=== PATIENT | female | born 1970 | race Caucasian/White ===

== ENCOUNTER → 2021-04-12 12:27 | Outpatient (BNVA) | payer BC, SELFPAY | PROVIDERS: Visit Provider Nurse Practitioner Family | DX: J06.9 Acute upper respiratory infection, unspecified (principal); R05 Cough; R06.02 Shortness of breath | CPT/HCPCS: 71046; 85025; 87071; 87400; 87880 ==

== ENCOUNTER → 2021-05-29 10:13 | Outpatient (BNVA) | payer BC, SELFPAY | PROVIDERS: Visit Provider Nurse Practitioner Family | DX: R30.0 Dysuria (principal); E03.9 Hypothyroidism, unspecified; N95.1 Menopausal and female climacteric states; E78.00 Pure hypercholesterolemia, unspecified; Z12.39 Encounter for other screening for malignant neoplasm of breast; Z68.29 Body mass index [BMI] 29.0-29.9, adult; Z71.89 Other specified counseling | CPT/HCPCS: 80053; 80061; 82306; 84443 ==

== ENCOUNTER → 2021-08-03 13:27 | Outpatient (BNVA) | payer BC, SELFPAY | PROVIDERS: Visit Provider Nurse Practitioner Family | DX: Z20.822 Contact with and (suspected) exposure to COVID-19 (principal) | CPT/HCPCS: 87635 ==

== ENCOUNTER → 2021-08-13 09:52 | Outpatient (BNVA) | payer BC, SELFPAY | PROVIDERS: Visit Provider Nurse Practitioner Family | DX: Z11.52 Encounter for screening for COVID-19 (principal); Z20.822 Contact with and (suspected) exposure to COVID-19; Z13.9 Encounter for screening, unspecified | CPT/HCPCS: 87635 ==

== ENCOUNTER → 2021-10-29 11:56 | Outpatient (BNVA) | payer BC, SELFPAY | PROVIDERS: Visit Provider Nurse Practitioner Family | DX: J40 Bronchitis, not specified as acute or chronic (principal); J18.9 Pneumonia, unspecified organism; R06.02 Shortness of breath; J06.9 Acute upper respiratory infection, unspecified; J32.9 Chronic sinusitis, unspecified | CPT/HCPCS: 80053 ==

== ENCOUNTER → 2021-11-27 10:24 | Outpatient (BNVA) | payer BC, SELFPAY | PROVIDERS: PCP Nurse Practitioner Family; Visit Provider Nurse Practitioner Family | DX: R30.0 Dysuria (principal); E55.9 Vitamin D deficiency, unspecified; E78.00 Pure hypercholesterolemia, unspecified; E03.9 Hypothyroidism, unspecified; M62.838 Other muscle spasm; M25.512 Pain in left shoulder; M54.2 Cervicalgia; N32.81 Overactive bladder; N39.0 Urinary tract infection, site not specified; N32.89 Other specified disorders of bladder; N95.1 Menopausal and female climacteric states; G47.00 Insomnia, unspecified | CPT/HCPCS: 80053; 82306; 84443 ==

== ENCOUNTER → 2022-04-03 12:06 | Outpatient (BNVA) | payer BC, SELFPAY | PROVIDERS: PCP Nurse Practitioner Family; Visit Provider Nurse Practitioner Family | DX: Z12.4 Encounter for screening for malignant neoplasm of cervix (principal); N95.1 Menopausal and female climacteric states | CPT/HCPCS: 88175 ==

== ENCOUNTER → 2022-06-14 09:13 | Outpatient (BNVA) | payer BC, SELFPAY | PROVIDERS: PCP Nurse Practitioner Family; Visit Provider Nurse Practitioner Family | DX: E55.9 Vitamin D deficiency, unspecified (principal); E78.00 Pure hypercholesterolemia, unspecified; E03.9 Hypothyroidism, unspecified; G47.00 Insomnia, unspecified; M62.838 Other muscle spasm; K21.9 Gastro-esophageal reflux disease without esophagitis; M25.512 Pain in left shoulder; M54.2 Cervicalgia; J32.9 Chronic sinusitis, unspecified; N32.81 Overactive bladder; N95.1 Menopausal and female climacteric states; J30.2 Other seasonal allergic rhinitis | CPT/HCPCS: 80053; 80061; 84443 ==

== ENCOUNTER → 2022-08-13 11:05 | Outpatient (BNVA) | payer BC, SELFPAY | PROVIDERS: PCP Nurse Practitioner Family; Visit Provider Nurse Practitioner Family | DX: J40 Bronchitis, not specified as acute or chronic (principal); J32.0 Chronic maxillary sinusitis | CPT/HCPCS: 80053 ==

== ENCOUNTER → 2023-01-21 08:48 | Outpatient (BNVA) | payer OTHER, SELFPAY | PROVIDERS: PCP Nurse Practitioner Family; Visit Provider Nurse Practitioner Family | DX: J06.9 Acute upper respiratory infection, unspecified (principal); J32.0 Chronic maxillary sinusitis | CPT/HCPCS: 87486; 87581; 87633 ==

== ENCOUNTER → 2023-03-25 12:01 | Outpatient (BNVA) | payer OTHER, SELFPAY | PROVIDERS: PCP Nurse Practitioner Family; Visit Provider Nurse Practitioner Family | DX: E03.9 Hypothyroidism, unspecified (principal); E78.00 Pure hypercholesterolemia, unspecified; M25.512 Pain in left shoulder; M54.2 Cervicalgia; E55.9 Vitamin D deficiency, unspecified; H57.12 Ocular pain, left eye; M19.90 Unspecified osteoarthritis, unspecified site | CPT/HCPCS: 80053; 80061; 82306; 84443 ==

== ENCOUNTER → 2024-01-26 08:43 | Outpatient (BNVA) | payer OTHER, SELFPAY | PROVIDERS: PCP Nurse Practitioner Family; Visit Provider Nurse Practitioner Family | DX: E78.00 Pure hypercholesterolemia, unspecified (principal); E03.9 Hypothyroidism, unspecified; E55.9 Vitamin D deficiency, unspecified; M25.512 Pain in left shoulder; M54.2 Cervicalgia; M19.90 Unspecified osteoarthritis, unspecified site | CPT/HCPCS: 80053; 80061; 84443; 85025 ==

== ENCOUNTER → 2024-04-29 10:35 | Outpatient (BNVA) | payer OTHER, SELFPAY | PROVIDERS: PCP Nurse Practitioner Family; Visit Provider Nurse Practitioner Family | DX: E03.9 Hypothyroidism, unspecified (principal); E78.00 Pure hypercholesterolemia, unspecified | CPT/HCPCS: 84443 ==

== ENCOUNTER 2024-06-15 11:58 | Outpatient (CLI) | payer OTHER, SELFPAY ==
--- NOTE | 2024-06-15 12:00 | MM_ITS ---
WS: [id number] BILATERAL 3D TOMOSYNTHESIS DIGITAL SCREENING MAMMOGRAPHY WITH CAD CLINICAL INFORMATION: Z12.39 - Encounter for other screening for malignant neop... HISTORY: Screening mammogram. No current complaints. COMPARISON: 2021 TECHNIQUE: Bilateral CC and MLO views. FINDINGS: Scattered fibroglandular densities bilaterally. No suspicious focal mass, asymmetry, calcifications, or architectural distortion. No evidence of malignancy. Incidental punctate calcification LEFT breast . MM/MM scr tomosynthesis [id number] IMPRESSION: DENSITY: There are scattered areas of fibroglandular density. BI-RADS: 2 - Benign. FOLLOW UP: 1 Year Follow-up Recommend return to annual screening mammography.
== END 2024-06-15 11:59 | disposition home or self-care (01) ==
LOC: MOBLMAM 11:59
PROVIDERS: PCP Nurse Practitioner Family; Visit Provider Nurse Practitioner Family
DX: Z12.31 Encounter for screening mammogram for malignant neoplasm of breast (principal); R92.323 Mammographic fibroglandular density, bilateral breasts; N92.1 Excessive and frequent menstruation with irregular cycle
CPT/HCPCS: 77063; 77067

== ENCOUNTER → 2024-08-12 10:25 | Outpatient (BNVA) | payer OTHER, SELFPAY | PROVIDERS: PCP Nurse Practitioner Family; Visit Provider Emergency Medicine | DX: S69.92XA Unspecified injury of left wrist, hand and finger(s), initial encounter (principal); X58.XXXA Exposure to other specified factors, initial encounter | CPT/HCPCS: 73110 ==

== ENCOUNTER → 2024-08-16 13:01 | Outpatient (BNVA) | payer OTHER, SELFPAY | PROVIDERS: PCP Nurse Practitioner Family; Visit Provider Nurse Practitioner Family | DX: E03.9 Hypothyroidism, unspecified (principal) | CPT/HCPCS: 84443 ==

== ENCOUNTER → 2024-11-01 12:31 | Outpatient (BNVA) | payer OTHER, SELFPAY | PROVIDERS: PCP Nurse Practitioner Family; Visit Provider Nurse Practitioner Family | DX: E03.9 Hypothyroidism, unspecified (principal) | CPT/HCPCS: 80053; 80061; 84443 ==

== ENCOUNTER 2025-07-25 07:44 | Emergency (ER) | payer OTHER, SELFPAY ==
--- OUTSIDE RECORDS SUMMARY | 2025-07-25 07:48 | XMS_ITS | Patient Health Record ---
Author Organization [facility] Address [address] [place] [address] Care Team Providers Care Leg Breaker Name Role Phone Ayanna Ireland Primary Care Provider Susan Vyas Unavailable [phone] Cris Chan APRN Unavailable Unavailabl e Allergies Allergen (clinical drug ingredient) Drug/Non Drug Allergy documented on EMR Reaction Allergy Type Onset Date Status amoxicillin Amoxicillin Unknown Drug Allergy Act milly meperidine Demerol Unknown Drug Allergy Active Rhus Tox Unknown Drug Allergy Active Reason For Referral No Information Medications Medication SIG (Take, Route, Frequency, Duration) Notes Start Date End Date Status oxyBUTYnin Chloride ER 5 MG Tablet Extended Release 24 Hour 1 tablet Orally Once a day Active Fluticasone Propionate 50 MCG/ACT Suspension 1 spray in each nostril Nasally Once a day Active Eszopiclone 2 MG Tablet 1 tablet immedia tely before bedtime Orally prn Active Cyclobenzaprine HCl 10 MG Tablet 1 tablet at bedtime as needed Orally prn Active Estradiol 0.1 MG/GM Cream as directed Vaginal Active Atorvastatin Calcium 20 MG Tablet 1 tablet Orally Once a day Active Levothyroxine Sodium 88 MCG Tablet 1 tablet in the morning on an empty stomach Orally Once a day Active Immunizations Vaccine Route Administration Date Status Comme nts Influenza (whole), CPT 90193 Inactive Unknown 03/27/2018 Administered Social History Tobacco Use: Social History Observation Description Date Details (start date - stop date) Never Smoker NA - NA Social History Drugs/Alcohol: Social Info Question Answer Notes Alcohol Screen (Audit-C) Did you have a drink containing alcohol in the past year? Yes How often did you have a drink containing alcohol in the past year? 2 to 3 times a week (3 points) Points 3 Interpretation Positive Tobacco Use: Social Info Question Answer Notes xTobacco Use/Smoking Are you a nonsmoker Additional Details Category Social Info Options Details zzMigrated Social History Migrated Social History Smoking Status:Never smoked tobacco (finding) Problems Problem Type SNOMED Code ICD Code Onset Dates Problem Status W/U Status Risk Notes Problem Diverticular disease of colon (580708203) Diverticulosis of large intestine without perforation or abscess without bleeding (K57.30) Active confirmed Problem Diverticulitis (58412493) Diverticulitis (K57.92) Active confirmed Plan Of Treatment No Information Insurance Providers Payer Name Payer Address Payer Phone Subscriber Number Group Number Insured Name Patient Relationship to Insured Coverage Start Date Coverage End Date [facility] Commercial [address] [place] [phone] [id number] Leah Moss Self - patient is the insured Medical (General) History Medical History History ICD Code hyperlipidemia hypothyroidism hemorrhoids menieres disease Muscle spasms with neck pain Surgical History Surgery Date(Month/Year) tubal ligation dilatation and curettage x2 appendectomy Hospitalization History Reason Date(Month/Year) see surgical hx
--- OUTSIDE RECORDS SUMMARY | 2025-07-25 07:49 | XMS_ITS | Data Portability ---
Author Organization [facility], autoContract Address [address] [facility] [address] [place] [address] Assessment No assessment recorded. Plan of Treatment Reminders Order Date Submit Date Provider Last Modified By Organization Details Last Modified Time Details Appointments None recorded. Lab urinalysis , dipstick 2021 022 [email or web address] In-House Results, For Internal Use Only, Do Not Delete/merge, [id number] 2 16:28:46 rapid SARS CoV 2 Ag, QL IA, respirator y specimen 2020 021 [email or web address] 1 In-Office Order, Internal Use Only DO Not Attach Compendium DO Not Attach Compendium, Do Not Delete/merge, [id number] 1 16:44:28 SARS CoV 2 RNA (COVID-19) , QL, electronic gaming device supervisor-PCR, respirator y specimen 2020 021 JORJE In-House Results, For Internal Use Only, Do Not Delete/merge, [id number] 15:42:28 Referral None recorded. Procedures None recorded. Surgeries None recorded. Imaging XR, abdomen, 1 view 2022 023 [email or web address] 132 [facility]) Imaging, [address] [place] [address] Tony Sheets, [place], [address], 3 13:22:58 Medication Orders Cipro 500 mg tablet 2021 022 [email or web address] [facility] [address], [place], [address], 21:34:57 metronidaz ole 500 mg tablet 2021 [facility] [address], [address] [facility] [address], [place], [address], 16:28:14 azithromyc in 250 mg tablet [address] [facility] [address] [place], [address], 16:44:36 methylpred nisolone acetate 40 mg/mL suspension for injection 2020 [email or web address] Not available 08:53:55 dexamethas one sodium phosphate 4 mg/mL injection solution 2020 [email or web address] Not available 08:53:55 Tessalon Perles 100 mg capsule [address] [facility] [address] [place], [address], 16:44:39 ProAir HFA 90 mcg/actuat ion aerosol inhaler [address] [facility] [address] [place], [address], 16:44:40 Polytrim 10,000 unit-1 mg/mL eye drops [address] [facility] [address], [address] [facility] [address], [place], [address], 10:34:54 Patient TargetsNo targets recorded. Patient Instructions Encounter Date Encounter Id Patient Instructions Last Modified By Organization Details Last Modified Time 03/16/2021 [id number] candidiasis: car e instructions [email or web address] Not available 03/16/2021 09:59:12 Pt was told to R TC in 1 week if not better or sooner if worsens. Pt discharged to home via private vehicle. [email or web address] Not available 03/16/2021 09:58:27 03/27/2021 [id number] pinkeye: care instructions [email or web address] Not available 03/27/2021 10:34:38 Avoid rubbing ey es Wash hands frequently Start antibiotic drops as prescribed Contagious for 24 hours after starting abx drops Pt was told to RTC in 1 week if not better or sooner if worsens [email or web address] Not available 04/03/2021 00:24:24 04/09/2021 [id number] headache: care instructions Not available 04/09/2021 16:44:27 9 things to do i f you've been exposed to covid-19 [email or web address] Not available 04/09/2021 16:44:27 sore throat: car e instructions [email or web address] Not available 04/09/2021 16:44:27 *Patient examine d in private vehicle in clinic parking lot will full PPE in place to prevent risk of exposure or transmission. -Will test for COVID 19, further plan of care pending results -VS stable at this time, no acute distress, exam unremarkable. Is stable for outpatient treatment. -Recommend to self-quarantine at home for 10 days from the time of first symptom. Restrict all activities outside of home, aside from medical care. Stay in a specific room and away from other people in your home. Use a seperate bathroom. Do not handle animals while sick. - Discussed: Get some extra rest, increase fluid intake. Take an strg-ekg-hccgtwr pain medicine, such as acetaminophen (Tylenol) for fever/pain. -Call ahead before coming to the clinic -Wear a facemask if you have to be around other people. -Cover your mouth and nose with a tissue when you cough or sneeze and immediately wash your hands with soap and water for at least 20 seconds or clean your hands with an alcohol based hand-personal lines advisor. -Avoid sharing personal household items (towels, cups, utensils, bedding) -Wash hands often and avoid touching your mouth, eyes, nose. -Clean and disinfect all high touch surfaces including counters, tabletops, doorknobs, toilets, phones, keyboards and any surface that may have blood, stool, or body fluids on them. Monitor symptoms closely. Disease may worsen after the second week of infection. Seek prompt medical attention if your illness is worsening. Before seeking care, contact healthcare provider and tell them that you are under investigation for COVID-19. If you need immediate medical attention call 911, if possible, put on a facemask before EMS arrives. Advised to call office if any questions or concerns arise. Patient discharged to home via private vehicle with his spouse. Verbal and written education given. Follow-up instructions provided. [email or web address] Not available 04/09/2021 16:44:53 02/08/2022 [id number] painful urinatio n (dysuria): care instructions [email or web address] Not available 02/10/2022 21:45:37 abdominal pain: care instructions [email or web address] Not available 02/08/2022 16:20:00 AMC_COVID_VACCIN E_ HESITANCY sbayird Not available 02/08/2022 16:20:00 Lisa Learns About Germ-Busting sbayird Not available 02/08/2022 16:20:00 coronavirus (covid-19): care instructions sbayird Not available 02/08/2022 16:20:00 learning about coronavirus (covid-19) sbayird Not available 02/08/2022 16:20:00 RX and instructions as above. Patient discharged home in private vehicle in stable condition. Has f/u with PCP on Friday. [email or web address] Not available 02/10/2022 21:43:49 10/16/2022 [id number] AMC_COVID_VACCIN E_ HESITANCY 8 Not available 10/17/2022 13:02:48 Lisa Learns About Germ-Busting [email or web address] Not available 10/17/2022 13:02:48 coronavirus (covid-19): care instructions [email or web address] 8 Not available 10/17/2022 13:02:48 learning about coronavirus (covid-19) [email or web address] 8 Not available 10/17/2022 13:02:48 RTC in 1 month o r sooner if needed. pt discharged to home via private vehicle [email or web address] 8 Not available 10/16/2022 18:22:59 Reason for Referral None Reported. Results Created Date Observation Date Name Description Value Unit Range Abnormal Flag Note LastModifiedBy Organization Detail LastModifiedTime 04/09/2004/09/2021 rapid SARS CoV 2 Ag, QL IA, respi rator y speci men Rapid COVID-19 antigen negati ve Not Available In-Office Order Internal Use Only DO Not Attach Compendium DO Not Attach Compendium, Do Not Delete/merge, [id number] 04/09/2021 16:42:37 02/27/20 21 02/26/2021 influ roque virus A + B and SARS CoV 2 (COVI D-19) and RSV RNA panel , NAFISA+p robe, respi rator y speci men Flu A negati ve Not Available In-Office Order Internal Use Only DO Not Attach Compendium DO Not Attach Compendium, Do Not Delete/merge, [id number] 02/26/2021 11:02:08 02/27/20 21 02/26/2021 influ roque virus A + B and SARS CoV 2 (COVI D-19) and RSV RNA panel , NAFISA+p robe, respi rator y speci men Flu B negati ve Not Available In-Office Order Internal Use Only DO Not Attach Compendium DO Not Attach Compendium, Do Not Delete/merge, [id number] 02/26/2021 11:02:08 02/27/20 21 02/26/2021 influ roque virus A + B and SARS CoV 2 (COVI D-19) and RSV RNA panel , NAFISA+p robe, respi rator y speci men RSV negati ve Not Available In-Office Order Internal Use Only DO Not Attach Compendium DO Not Attach Compendium, Do Not Delete/merge, [id number] 02/26/2021 11:02:08 02/27/20 21 02/26/2021 influ roque virus A + B and SARS CoV 2 (COVI D-19) and RSV RNA panel , NAFISA+p robe, respi rator y speci men COVID negati ve Not Available In-Office Order Internal Use Only DO Not Attach Compendium DO Not Attach Compendium, Do Not Delete/merge, [id number] 02/26/2021 11:02:08 02/27/20 21 02/26/2021 rapid strep group A, throa t Strep negati ve Not Available In-House Results For Internal Use Only, Do Not Delete/merge, 02/26/2021 11:02:02 02/17/20 21 02/16/2021 urina lysis , dipst ick Leukocytes Negati ve Not Available In-House Results For Internal Use Only, Do Not Delete/merge, 02/15/2021 17:13:05 02/17/20 21 02/16/2021 urina lysis , dipst ick Nitrite negati ve Not Available In-House Results For Internal Use Only, Do Not Delete/merge, 02/15/2021 17:13:05 02/17/20 21 02/16/2021 urina lysis , dipst ick Urobilinogen .2 Not Available In-Ho use Results For Internal Use Only, Do Not Delete/merge, 02/15/2021 17:13:05 02/17/20 21 02/16/2021 urina lysis , dipst ick Protein Negati ve Not Available In-House Results For Internal Use Only, Do Not Delete/merge, 02/15/2021 17:13:05 02/17/20 21 02/16/2021 urina lysis , dipst ick pH 7.0 Not Available In-House Results For Internal Use Only, Do Not Delete/merge, 02/15/2021 17:13:05 02/17/20 21 02/16/2021 urina lysis , dipst ick Blood Small Not Available In-House Results For Internal Use Only, Do Not Delete/merge, 02/15/2021 17:13:05 02/17/20 21 02/16/2021 urina lysis , dipst ick Specific [place] 1.025 Not Available In-Cristel se Results For Internal Use Only, Do Not Delete/merge, 02/15/2021 17:13:05 02/17/20 21 02/16/2021 urina lysis , dipst ick Ketone Negati ve Not Available In-House Results For Internal Use Only, Do Not Delete/merge, 02/15/2021 17:13:05 02/17/20 21 02/16/2021 urina lysis , dipst ick Bilirubin Negati ve Not Available In-House Results For Internal Use Only, Do Not Delete/merge, [id number] 02/15/2021 17:13:05 02/17/20 21 02/16/2021 urina lysis , dipst ick Glucose Negati ve Not Available In-House Results For Internal Use Only, Do Not Delete/merge, [id number] 02/15/2021 17:13:05 02/27/20 21 02/27/2021 COMP METAB OLIC PANEL sodium 141 mEq/L 135-14 6 Not Available [facility] [address] [place], [address], 02/27/2021 05:04:47 02/27/20 21 02/27/2021 COMP METAB OLIC PANEL potassium 4.3 mEq/L 3.5-5. 4 Not Available [facility] [address] [place], [address], 02/27/2021 05:04:47 02/27/20 21 02/27/2021 COMP METAB OLIC PANEL chloride 105 mEq/L 95-107 Not Available [facility] [address] [place], [address], 02/27/2021 05:04:47 02/27/20 21 02/27/2021 COMP METAB OLIC PANEL carbon dioxide 28 mEq/L 19-31 Not Available [facility] [address] [place], [address], 02/27/2021 05:04:47 02/27/20 21 02/27/2021 COMP METAB OLIC PANEL anion gap 8 mEq/L 7-23 Not Available [facility] [address] [place], [address], 02/27/2021 05:04:47 02/27/20 21 02/27/2021 COMP METAB OLIC PANEL glucose non-fasting 99 mg/dL 70-139 Not Available [facility] [address] [place], [address], 02/27/2021 05:04:47 02/27/20 21 02/27/2021 COMP METAB OLIC PANEL urea nitrogen (BUN) 11 mg/dL 6-20 Not Available [facility] [address] [place], [address], 02/27/2021 05:04:47 02/27/20 21 02/27/2021 COMP METAB OLIC PANEL creatinine 0.69 mg/dL 0.60-1 .30 Not Available [facility] [address] [place], [place], [address], 02/27/2021 05:04:47 02/27/20 21 02/27/2021 COMP METAB OLIC PANEL eGFR 117 mL/mi n/1.7 3m'2 >59 Not Available [facility] [address] [place], [address], 02/27/2021 05:04:47 02/27/20 21 02/27/2021 COMP METAB OLIC PANEL eGFR non- amer 101 mL/mi n/1.7 3m'2 >59 Not Available [facility] [address] [place], [address], 02/27/2021 05:04:47 02/27/20 21 02/27/2021 COMP METAB OLIC PANEL BUN/creatini ne ratio 16 ratio Not Available [facility] [address] [place], [address], 02/27/2021 05:04:47 02/27/20 21 02/27/2021 COMP METAB OLIC PANEL calcium total 9.7 mg/dL 8.5-10 .5 Not Available [facility] [address] [place], [address], 02/27/2021 05:04:47 02/27/20 21 02/27/2021 COMP METAB OLIC PANEL protein total 6.7 g/dL 6.1-8. 3 Not Available [facility] [address] [place], [place], [address], 02/27/2021 05:04:47 02/27/20 21 02/27/2021 COMP METAB OLIC PANEL albumin 4.5 g/dL 3.5-5. 2 Not Available [facility] [address] [place], [place], [address], 02/27/2021 05:04:47 02/27/20 21 02/27/2021 COMP METAB OLIC PANEL globulin 2.2 g/dL 1.7-4. 3 Not Available [facility] [address] [place], [place], [address], 02/27/2021 05:04:47 02/27/20 21 02/27/2021 COMP METAB OLIC PANEL A/G ratio 2.0 ratio 0.9-2. 8 Not Available [facility] [address] [place], [place], [address], 02/27/2021 05:04:47 02/27/20 21 02/27/2021 COMP METAB OLIC PANEL bilirubin total 0.2 mg/dL 0.0-1. 2 Not Available [facility] [address] [place], [place], [address], 02/27/2021 05:04:47 02/27/20 21 02/27/2021 COMP METAB OLIC PANEL alkaline phosphatase 73 U/L 40-132 Not Available [facility] [address] [place], [place], [address], 02/27/2021 05:04:47 02/27/20 21 02/27/2021 COMP METAB OLIC PANEL AST (SGOT) 36 U/L 9-40 Not Available [facility] [address] [place], [address], 02/27/2021 05:04:47 02/27/20 21 02/27/2021 COMP METAB OLIC PANEL ALT (SGPT) 35 U/L 5-40 Not Available [facility] [address] [place], [place], [address], 02/27/2021 05:04:47 02/27/20 21 02/27/2021 CBC WITH DIFFE RENTI AL WBC 10.4 K/uL 4.0-11 .0 Not Available [facility] [address] [place], [place], [address], 02/27/2021 05:04:47 02/27/20 21 02/27/2021 CBC WITH DIFFE RENTI AL RBC 4.17 M/uL 4.00-5 .50 Not Available [facility] [address] [place], [place], [address], 02/27/2021 05:04:47 02/27/20 21 02/27/2021 CBC WITH DIFFE RENTI AL hemoglobin 12.3 g/dL 12.0-1 6.0 Not Available [facility] [address] [place], [place], [address], 02/27/2021 05:04:47 02/27/20 21 02/27/2021 CBC WITH DIFFE RENTI AL hematocrit 37.0 % 36.0-4 8.0 Not Available [facility] [address] [place], [place], [address], 02/27/2021 05:04:47 02/27/20 21 02/27/2021 CBC WITH DIFFE RENTI AL MCV 88.7 fL 78.0-1 02.0 Not Available [facility] [address] [place], [address], 02/27/2021 05:04:47 02/27/20 21 02/27/2021 CBC WITH DIFFE RENTI AL MCH 29.5 pg 25.0-3 5.0 Not Available [facility] [address] [place], [address], 02/27/2021 05:04:47 02/27/20 21 02/27/2021 CBC WITH DIFFE RENTI AL MCHC 33.2 g/dL 30.0-3 8.0 Not Available [facility] [address] [place], [place], [address], 02/27/2021 05:04:47 02/27/20 21 02/27/2021 CBC WITH DIFFE RENTI AL RDW 12.5 % 11.5-1 6.0 Not Available [facility] [address] [place], [place], [address], 02/27/2021 05:04:47 02/27/20 21 02/27/2021 CBC WITH DIFFE RENTI AL platelet count 329 K/uL 150-45 0 Not Available [facility] [address] [place], [place], [address], 02/27/2021 05:04:47 02/27/20 21 02/27/2021 CBC WITH DIFFE RENTI AL abs neutrophils 8.4 K/uL 1.8-7. 0 high Not Available [facility] [address] [place], [address], 02/27/2021 05:04:47 02/27/20 21 02/27/2021 CBC WITH DIFFE RENTI AL abs lymphocytes 1.1 K/uL 1.0-4. 0 Not Available [facility] [address] [place], [address], 02/27/2021 05:04:47 02/27/20 21 02/27/2021 CBC WITH DIFFE RENTI AL abs monocytes 0.8 K/uL 0.1-1. 1 Not Available [facility] [address] [place], [place], [address], 02/27/2021 05:04:47 02/27/20 21 02/27/2021 CBC WITH DIFFE RENTI AL abs eosinophils 0.0 K/uL 0.0-0. 5 Not Available [facility] [address] [place], [address], 02/27/2021 05:04:47 02/27/20 21 02/27/2021 CBC WITH DIFFE RENTI AL abs basophils 0.0 K/uL 0.0-0. 3 Not Available [facility] [address] [place], [place], [address], 02/27/2021 05:04:47 02/27/20 21 02/27/2021 CBC WITH DIFFE RENTI AL abs immature grans 0.0 K/uL 0.0-0. 1 Not Available [facility] [address] [place], [address], 02/27/2021 05:04:47 02/27/20 21 02/27/2021 CBC WITH DIFFE RENTI AL neutrophils 81.2 % Not Available [facility] [address] [place], [address], 02/27/2021 05:04:47 02/27/20 21 02/27/2021 CBC WITH DIFFE RENTI AL lymphocytes 10.6 % Not Available [facility] [address] [place], [address], 02/27/2021 05:04:47 02/27/20 21 02/27/2021 CBC WITH DIFFE RENTI AL monocytes 7.3 % Not Available [facility] [address] [place], [place], [address], 02/27/2021 05:04:47 02/27/20 21 02/27/2021 CBC WITH DIFFE RENTI AL eosinophils 0.3 % Not Available [facility] [address] [place], [place], [address], 02/27/2021 05:04:47 02/27/20 21 02/27/2021 CBC WITH DIFFE RENTI AL basophils 0.2 % Not Available [facility] [address] [place], [place], [address], 02/27/2021 05:04:47 02/27/20 21 02/27/2021 CBC WITH DIFFE RENTI AL immature grans 0.4 % Not Available [facility] [address] [place], [place], [address], 02/27/2021 05:04:47 02/27/20 21 02/27/2021 CBC WITH DIFFE RENTI AL nucleated RBCs <1.0 /100_ WBCs <1 Not Available [facility] [address] [place], [place], [address], 02/27/2021 05:04:47 04/09/20 21 04/10/2021 COVID 19 SARS- COV-2 covid19 (sars-cov-2) Negati ve negati ve Not Available [facility] [address] [place], [address], 04/10/2021 15:42:28 04/09/2004/10/2021 COVID 19 SARS- COV-2 source Unknow n Comme nt for COVID 19 SARS- COV-2 Negat milly (Not Detec dakota) resul ts do not exclu de infec tion cause d by SARS- CoV-2 and shoul d not be used as the sole basis for treat ment or other patie nt manag ement decis ions. Optim um speci men types and timin g for peak viral level s durin g infec tions cause d by SARS- CoV-2 have not been deter mined . Colle ction of multi ple speci mens (type s and time point s) from the same patie nt may be neces pao to detec t the virus . Impro per speci men colle ction and handl ing, seque nce varia bilit y under lying assay prime rs and/o r probe s, or the prese nce of organ isms in quant ities less than the limit of detec tion of the assay may lead to false negat milly resul ts. Posit milly and negat milly predi ctive value s of testi ng are highl y depen dent on preva lence . False negat milly resul ts are more likel y when preva lence of disea se is high. The expec dakota resul t is Negat milly (Not Detec dakota). The SARS- CoV-2 test is inten ded for the presu mptiv e quali tativ e detec tion of nucle ic acid from SARS- CoV-2 in upper and lower respi rator y speci mens. Testi ng metho dolog y is Nucle ic Acid Ampli ficat ion (NAAT ), inclu ding RT-PC R, using high- throu ghput techn ology . Test resul ts must be corre lated with clini leyda prese ntati on and evalu ated in the arnold xt of other labor atory and epide miolo gic data. Test perfo rmanc e can be affec dakota becau se the epide miolo gy and clini leyda spect rum of infec tion cause d by SARS- CoV-2 is not fully known . For examp le, the optim um types of speci mens, and when to colle ct durin g the cours e of infec tion, may not be known . Fact Sheet for Healt hcare Provi ders: https ://PerioSeal/ r7awx yh (or: https ://ww w.cdc .gov/ coron aviru s/201 9-nco v/juanita nload s/ Facts heet- for-H ealth care- Provi ders- 2018- nCoV. pdf) Fact Sheet for Adolph nts: https ://PerioSeal/ rlqe7 2t (or: https ://manas w.cdc .gov/ coron aviru s/201 9-nco v/juanita nload s/ Facts heet- for-P atien ts-20 19-nC oV.pd f) This assay is a Labor atory Devel oped Test (LDT) . Valid ation demon strat ed the assay has accep table danielito cteri stics to detec t COVID -19 from human clini leyda respi rator y speci mens. Indep enden t revie w of this assay by the FDA is not final at this time. Not Available [facility] [address], [place], [address], 04/10/2021 15:42:28 02/09/20 22 02/08/2022 urina lysis , dipst ick Leukocytes Trace Not Available In-Hous e Results For Internal Use Only, Do Not Delete/merge, 02/08/2022 16:04:57 02/09/20 22 02/08/2022 urina lysis , dipst ick Nitrite negati ve Not Available In-House Results For Internal Use Only, Do Not Delete/merge, 02/08/2022 16:04:57 02/09/20 22 02/08/2022 urina lysis , dipst ick Urobilinogen .2 Not Available In-Ho use Results For Internal Use Only, Do Not Delete/merge, 02/08/2022 16:04:57 02/09/20 22 02/08/2022 urina lysis , dipst ick Protein Negati ve Not Available In-House Results For Internal Use Only, Do Not Delete/merge, 02/08/2022 16:04:57 02/09/20 22 02/08/2022 urina lysis , dipst ick pH 7.0 Not Available In-House Results For Internal Use Only, Do Not Delete/merge, 02/08/2022 16:04:57 02/09/20 22 02/08/2022 urina lysis , dipst ick Blood Negati ve Not Available In-House Results For Internal Use Only, Do Not Delete/merge, 02/08/2022 16:04:57 02/09/20 22 02/08/2022 urina lysis , dipst ick Specific [place] 1.000 Not Available In-Cristel se Results For Internal Use Only, Do Not Delete/merge, 02/08/2022 16:04:57 02/09/20 22 02/08/2022 urina lysis , dipst ick Ketone Negati ve Not Available In-House Results For Internal Use Only, Do Not Delete/merge, 02/08/2022 16:04:57 02/09/20 22 02/08/2022 urina lysis , dipst ick Bilirubin Negati ve Not Available In-House Results For Internal Use Only, Do Not Delete/merge, 02/08/2022 16:04:57 02/09/20 22 02/08/2022 urina lysis , dipst ick Glucose Negati ve Not Available In-House Results For Internal Use Only, Do Not Delete/merge, 02/08/2022 16:04:57 02/20/20 21 02/16/2021 CT, abdom en + pelvi s, w/o contr ast No observ ation record ed. [email or web address] [facility]) Imaging [address] [facility] [place], [address], 02/19/2021 14:13:49 02/13/20 22 02/12/2022 CT, abdom en + pelvi s, w/ contr ast No observ ation record ed. [email or web address] [facility] [address] [place], [address], 02/15/2022 11:44:45 Result Notes None recorded. Problems Name Problem SNOMED Code Status Onset Date Resolution Date Notes Provider Name and Address Organization Details Recorded Time Anxiety 54191165 Active 2017 Marsha cerda, JOHN - Jan Chan [facility] 8 14:35:52 Constipatio n 77227333 Completed 201712/01/2019 Cris Chan APRN [address], [place], [address], [place] JOHN [facility] 0 11:16:17 Hypothyroid ism 70314542 Active 2017 JOHN Jalloh [facility] 8 14:36:03 Hyperlipide lauren 03464048 Active 2017 JOHN Jalloh [facility] 8 14:36:20 Hypoglycemi a 381529123 Active 2017 NAUN VERDIN APRN [address], [place], [address], [place] JOHN [facility] 8 15:12:58 M ni re's disease 24639762 Completed 201712/01/2019 Cris Chan APRN [address], [place], [address], [place] JOHN Chan [facility] 0 11:16:24 Cystocele 217517876 Active 2017 NAUN VERDIN APRN [address], [place], [address], [place] JOHN [facility] 8 15:13:46 Rectocele with enterocele Active 2017 NAUN VERDIN APRN [address], [place], [address], [place] JOHN Chan [facility] 8 15:14:03 Neck pain 84110213 Active 2017 NAUN VERDIN APRN [address], [place], [address], [place] JOHN Chan [facility] 8 22:28:34 M ni re's disease 44565517 Active 2017 NAUN VERDIN APRN [address], [place], [address], [place] JOHN Chan [facility] 8 22:28:36 Tinea pedis 2709713 Completed 201712/01/2019 Cris Chan, THREAD REELER [address], [place], [address], JOHN Chan [facility] 0 11:16:11 Problem Notes None recorded. Procedures Surgical History Date Name Laterality Status Provider Name and Address Organization Details Recorded Time Appendectomy completed Marsha Chan [facility] 10/21/2017 14:40:16 Other completed Marsha Chan [facility] 10/21/2017 14:41:22 Imaging Results None recorded. Procedure Notes None recorded. Medical Equipment None Reported. Allergies Allergen ID Allergen Name Allergen Category Reaction Reaction Severity Criticality Documentation Date Start Date Code Code System Note Provider Name and Address Organization Details Recorded Time 99468 amoxicill in medicatio n respirato ry distress severe Not available 10/21/2017 723 RxNorm JOHN Jalloh [facility] 8 14:32:04 01192 Demerol medicatio n Not available Not available Not available 10/21/2017 47831 1 RxNorm JOHN Jalloh [facility] 8 14:32:25 Medications Name Sig Start Date Stop Date Status Note LastModified by Organization Details LastModified Time cyclobenzap rine 10 mg tablet TAKE 1 TABLET BY MOUTH THREE TIMES DAILY NEEDED FOR MUSCLE SPASM active Not Available Not Available No t Available fluconazole 100 mg tablet TAKE 1 TABLET BY MOUTH DAILY FOR 1 DAY active Not Available Not Available No t Available promethazin e-DM 6.25 mg-15 mg/5 mL oral syrup TAKE 5 ML BY MOUTH EVERY 6 HOURS NEEDED FOR COUGH active Not Available Not Available No t Available nystatin 100,000 unit/mL oral suspension TAKE 5 ML BY MOUTH 4 TIMES DAILY FOR 10 DAYS 03/16 completed Not Available Not Available Not Available Colace 100 mg capsule Take 2 capsules every day by oral route. 07/06 completed Not Available Not Available Not Available atorvastati n 20 mg tablet TAKE 1 TABLET BY MOUTH ONCE DAILY active Not Available Not Available No t Available clindamycin HCl 300 mg capsule TAKE 1 CAPSULE BY MOUTH THREE TIMES DAILY FOR 7 DAYS active Not Available Not Available No t Available trazodone 50 mg tablet Take 1 tablet every day by oral route at bedtime for 30 days. 11/01 completed Not Available Not Available Not Available azithromyci n 250 mg tablet TAKE 2 TABLETS BY MOUTH ON DAY 1, THEN TAKE 1 TABLET DAILY ON DAYS 2 through 5 active Not Available Not Available No t Available Lidocaine Viscous 2 % mucosal solution Take 15 mL every 3 hours by oral route as needed. 09/10 completed Not Available Not Available Not Available fluconazole 150 mg tablet TAKE ONE TABLET BY MOUTH A ONE TIME DOSE 03/16 completed Not Available Not Available Not Available hydrocodone 5 mg-acetamin ophen 325 mg tablet TAKE 1 TABLET BY MOUTH EVERY 4 TO 6 HOURS NEEDED FOR PAIN PLEASE NOTIFY OUR OFFICE IF ANY REACTION active Not Available Not Available No t Available meloxicam 15 mg tablet TAKE 1 TABLET BY MOUTH ONCE DAILY active Not Available Not Available No t Available prednisone 20 mg tablet TAKE 1 TABLET BY MOUTH ONCE DAILY FOR 5 DAYS 03/16 completed Not Available Not Available Not Available prednisone 5 mg tablet 04/02 completed Not Available Not Available Not Available clindamycin HCl 150 mg capsule 03/18 completed Not Available Not Available Not Available Zyrtec 10 mg tablet Take 1 tablet every day by oral route for 30 days. 07/06 completed Not Available Not Available Not Available metronidazo le 500 mg tablet TAKE 1 TABLET BY MOUTH EVERY 8 HOURS WITH MEALS FOR 7 DAYS active Not Available Not Available No t Available sulfamethox azole 800 mg-trimetho prim 160 mg tablet Take 1 tablet every 12 hours by oral route with meals for 5 days. 09/05 completed Not Available Not Available Not Available tramadol 50 mg tablet Take 1 tablet every 8 hours by oral route as needed for 5 days. 03/18 completed Not Available Not Available Not Available triamcinolo ne acetonide 0.1 % topical cream APPLY A THIN LAYER TO THE AFFECTED AREA(S) BY TOPICAL ROUTE 2 TIMES PER DAY 08/21 completed Not Available Not Available Not Available Euthyrox 100 mcg tablet TAKE 1 TABLET BY MOUTH ONCE DAILY FOR 30 DAYS 08/29 completed Not Available Not Available Not Available ondansetron 8 mg disintegrat ing tablet DISSOLVE 1 TABLET IN MOUTH EVERY 8 HOURS FOR 3 DAYS active Not Available Not Available No t Available ketorolac 10 mg tablet TAKE 1 TABLET BY MOUTH THREE TIMES DAILY FOR 5 DAYS NEEDED FOR PAIN active Not Available Not Available No t Available levothyroxi ne 88 mcg tablet TAKE 1 TABLET BY MOUTH ONCE DAILY active Not Available Not Available No t Available famotidine 20 mg tablet TAKE 1 TABLET BY MOUTH TWICE DAILY active Not Available Not Available No t Available tamsulosin 0.4 mg capsule TAKE 1 CAPSULE BY MOUTH ONCE DAILY FOR 30 DAYS 03/16 completed Not Available Not Available Not Available Euthyrox 75 mcg tablet Take 1 tablet by mouth once daily for 30 days 02/08 completed Not Available Not Available Not Available Proctozone- HC 2.5 % topical cream perineal applicator APPLY A THIN LAYER TO THE AFFECTED AREA(S) BY TOPICAL ROUTE 2-4 TIMESDAIL Y 07/06 completed Not Available Not Available Not Available diazepam 2 mg tablet Take 1 tablet every day by oral route as needed. 07/06 completed Not Available Not Available Not Available phenazopyri dine 100 mg tablet TAKE 1 TABLET BY MOUTH THREE TIMES DAILY FOR 6 DOSES NEEDED FOR PAIN active Not Available Not Available No t Available baclofen 10 mg tablet Take 0.5 tablets 3 times a day by oral route as needed for 15 days. 03/18 completed Not Available Not Available Not Available benzonatate 100 mg capsule TAKE ONE CAPSULE BY MOUTH THREE TIMES DAILY NEEDED FOR cough active Not Available Not Available No t Available erythromyci n 5 mg/gram (0.5 %) eye ointment APPLY A 1/2 INCH RIBBON INTO THE EYE(S) TWICE DAILY DIRECTED active Not Available Not Available No t Available methylpredn isolone acetate 40 mg/mL suspension for injection Take 1 mL every day by injection route. 2020 active Not Available Not Available Not Avai lable Cipro 500 mg tablet Take 1 tablet every 12 hours by oral route for 7 days. 2021 active Not Available Not Available Not Avai lable nystatin 100,000 unit/gram topical cream APPLY TO THE AFFECTED AREA(S) BY TOPICAL ROUTE 2 TIMES PER DAY 01/04 completed Not Available Not Available Not Available olopatadine 0.1 % eye drops INSTILL 1 DROP IN THE EYE(S) TWICE DAILY. SEPARATE DOSES BY AT LEAST 6 TO 8 HOURS active Not Available Not Available No t Available polymyxin B sulfate 10,000 unit-trimet hoprim 1 mg/mL eye drops INSTILL 1 DROP INTO AFFECTED EYE(S) EVERY 6 HOURS FOR 5 DAYS active Not Available Not Available No t Available diclofenac potassium 50 mg tablet TAKE ONE TABLET BY MOUTH THREE TIMES DAILY NEEDED FOR PAIN active Not Available Not Available No t Available oxybutynin chloride ER 5 mg tablet,exte nded release 24 hr TAKE 2 TABLETS BY MOUTH ONCE DAILY active Not Available Not Available No t Available montelukast 10 mg tablet TAKE 1 TABLET BY MOUTH ONCE DAILY active Not Available Not Available No t Available dexamethaso ne sodium phosphate 4 mg/mL injection solution Inject 1 mL by intramusc ular route. 2020 active Not Available Not Available Not Avai lable azelastine 137 mcg (0.1 %) nasal spray [place] 2 sprays twice a day by intranasa l route. 11/28 completed Not Available Not Available Not Available prednisone 5 mg tablets in a dose pack take as directed 04/02 completed Not Available Not Available Not Available polyethylen e glycol 3350 17 gram/dose oral powder Take 17 g every day by oral route as needed. 07/06 completed Not Available Not Available Not Available levofloxaci n 500 mg tablet Take 1 tablet every 24 hours by oral route for 5 days. 04/02 completed Not Available Not Available Not Available estradiol 0.01% (0.1 mg/gram) vaginal cream APPLY ONE APPLICATO RFUL VAGINALLY TWICE WEEKLY active Not Available Not Available No t Available methylpredn isolone 4 mg tablets in a dose pack TAKE BY MOUTH DIRECTED ON INSIDE OF PACKAGE active Not Available Not Available No t Available albuterol sulfate HFA 90 mcg/actuati on aerosol inhaler INHALE 2 PUFFS BY MOUTH SIX TIMES DAILY NEEDED FOR SHORTNESS OF BREATH FOR WHEEZING active Not Available Not Available No t Available SSD 1 % topical cream APPLY A 1/16 INCH (1.5 MM) THICK LAYER TO ENTIRE BURN AREA BY TOPICALRO COUSHATTA 2 TIMES PER DAY 04/17 completed Not Available Not Available Not Available ketorolac 60 mg/2 mL intramuscul ar solution Inject 1 mL every day by intramusc ular route. 09/25 completed Not Available Not Available Not Available ketoconazol e 2 % topical cream APPLY TO THE AFFECTED AREA(S) BY TOPICAL ROUTE ONCE DAILY FOR 6 WEEKS 01/04 completed Not Available Not Available Not Available oxybutynin chloride 5 mg tablet Take 1 tablet by mouth twice daily active Not Available Not Available No t Available fluticasone propionate 50 mcg/actuati on nasal spray,suspe nsion USE 2 SPRAY(S) IN EACH NOSTRIL ONCE DAILY active Not Available Not Available No t Available doxycycline hyclate 100 mg tablet Take 1 tablet twice a day by oral route for 10 days. 11/30 completed Not Available Not Available Not Available Sudafed 12 Hour 120 mg tablet,exte nded release Take 1 tablet every 12 hours by oral route as needed. 11/30 completed Not Available Not Available Not Available estradiol 0.025 mg/24 hr semiweekly transdermal patch APPLY 1 PATCH TOPICALLY TWICE A WEEK active Not Available Not Available No t Available azithromyci n 500 mg tablet Take 1 tablet every day by oral route for 3 days. 01/04 completed Not Available Not Available Not Available cyclobenzap rine 5 mg tablet TAKE ONE TABLET BY MOUTH THREE TIMES DAILY NEEDED FOR muscle spasm active Not Available Not Available No t Available nitrofurant oin monohydrate /macrocryst als 100 mg capsule TAKE 1 CAPSULE BY MOUTH EVERY 12 HOURS FOR 7 DAYS WITH A MEAL active Not Available Not Available No t Available eszopiclone 3 mg tablet TAKE 1 TABLET BY MOUTH ONCE DAILY AT BEDTIME active Not Available Not Available No t Available eszopiclone 2 mg tablet Take 1 tablet every day by oral route at bedtime for 30 days. 11/01 completed Not Available Not Available Not Available col1764 100 gram-sod sulf 7.5 gram-NaCl-K Cl-ascorbat e-C oral pwdr pack TAKE DIRECTED active Not Available Not Available No t Available Symbicort 160 mcg-4.5 mcg/actuati on HFA aerosol inhaler inhale TWO puffs into lungs EVERY TWELVE HOURS active Not Available Not Available No t Available diclofenac 1 % topical gel APPLY 2 GRAMS TO THE AFFECTED AREA(S) BY TOPICAL ROUTE 4 TIMES PER DAY 08/21 completed Not Available Not Available Not Available BinaxNOW COVID-19 Ag Self Test kit Use as Directed on the Package active Not Available Not Available No t Available Vitals Date Recorded Body height Body mass index (BMI) Body weight Body temperature Heart rate Respiratory rate Oxygen saturation Systolic And Diastolic Provider Name and Address Organization Details Last Updated DateTime 3 154.94 cm 29.7 kg/m2 29058.7 g 97.9 [degF] 72 /min 16 /min 98 % 118/68 mm[Hg] Brandy Chan [facility] 3 18:08:43 Date Recorded Body height Body mass index (BMI) Body weight Body temperature Heart rate Respiratory rate Oxygen saturation Systolic And Diastolic Provider Name and Address Organization Details Last Updated DateTime 2 154.94 cm 31 kg/m2 84111.5 5 g 98.9 [degF] 83 /min 18 /min 100 % 130/80 mm[Hg] Dorothy Chan [facility] 2 15:53:13 Date Recorded Body height Body mass index (BMI) Body weight Body temperature Heart rate Respiratory rate Oxygen saturation Systolic And Diastolic Provider Name and Address Organization Details Last Updated DateTime 1 154.94 cm 29.9 kg/m2 59709.2 9 g 98.2 [degF] 74 /min 18 /min 98 % 130/86 mm[Hg] Alexandre Chan [facility] 1 09:42:55 Date Recorded Body mass index (BMI) Body weight Body temperature Heart rate Respiratory rate Oxygen saturation Systolic And Diastolic Provider Name and Address Organization Details Last Updated DateTime 1 29.9 kg/m2 10953.3 9 g 98.1 [degF] 82 /min 18 /min 98 % 124/62 mm[Hg] Lexie Chan [facility] 1 10:21:06 Date Recorded Body height Provider Name an d Address Organization Details Last Updated DateTime 03/27/2021 154.94 cm Marsha devries [facility] 03/27/2021 10:06:50 Date Recorded Body height Body mass index (BMI) Body weight Body temperature Heart rate Respiratory rate Oxygen saturation Systolic And Diastolic Provider Name and Address Organization Details Last Updated DateTime 1 154.94 cm 30.6 kg/m2 08459.9 6 g 98.1 [degF] 85 /min 17 /min 98 % 136/72 mm[Hg] Alexandre Chan [facility] 1 16:14:16 Social History Question Answer Notes LastModified by Organizat ion Details LastModified Time Tobacco Smoking Status Never Smoker JOHN Jalloh [facility] 10/21/2017 14:38:44 How Much Tobacco Do You Chew? None [email or web address] Information not available 10/21/2017 What Type Of Diet Are You Following? REGULAR [email or web address] Information not available 10/21/2017 Which Illicit Or Recreational Drugs Have You Used? No [email or web address] Information not available 10/21/2017 Education 2 Year College [email or web address] Information not available 10/21/2017 Hard Of Hearing Or Deaf In One Or Both Ears? Yes [email or web address] Information not available 10/21/2017 Legally Blind In One Or Both Eyes? No [email or web address] Information no t available 10/21/2017 Live Alone Or With Others? With Others [email or web address] Information not available 10/21/2017 Risk Assessment Level Low [email or web address] Information not available 10/21/2017 Marital Status [email or web address] Informatio n not available 10/21/2017 What Was The Date Of Your Most Recent Tobacco Screening? 04/17/2020 Information not available 04/17/2020 Performs Monthly Self-breast Exam? Yes [email or web address] Information no t available 10/21/2017 Seat Belts Used Routinely Yes Information not available 10/21/2017 Smoke Alarm In Home No [email or web address] Information not available 10/21/2017 How Much Tobacco Do You Smoke? No [email or web address] Information not available 10/21/2017 General Stress Level Low [email or web address] Information not available 10/21/2017 Do You Use Sunscreen Routinely? Yes [email or web address] Information not available 10/21/2017 Sex: Unknown Functional Status Question Answer Note LastModified by Organizat ion Details LastModified Time What is your level of alcohol consumption? Occasional [email or web address] Information not available 10/21/2017 Do you or have you ever used smokeless tobacco? Never used smokeless tobacco [email or web address] Information not available 04/17/2020 Are you currently employed? Yes Information not available 10/21/2017 Are you able to walk independently without assistance or assistive devices? YESWOREST [email or web address] Information not available 10/21/2017 Are you able to care for yourself independently? Yes [email or web address] Information not available 10/21/2017 What is your occupation? [employer] [email or web address] Information not available 10/21/2017 Do you or have you ever used e-cigarettes or vape? Never used electronic cigarettes Information not available 04/17/2020 What is your exercise level? Occasional [email or web address] Information not available 10/21/2017 Mental Status None recorded. Family History Relationship Description Onset Age of this Age Resolved Age Notes LastModified by Organization Details LastModified Time Sister Anxiety disorder [email or web address] Not available 2017 14:36:49 Sister Depressive disorder [email or web address] Not available 2017 14:36:57 Sister Diabetes mellitus [email or web address] Not available 2017 14:37:15 Sister Mental disorder [email or web address] Not available 2017 14:37:38 Sister Obesity Not available 10/21/2017 14:37:47 Sister Seizure disorder [email or web address] Not available 2017 14:37:58 Father Diabetes mellitus Not available 2017 14:37:15 Mother Diabetes mellitus [email or web address] Not available 2017 14:37:15 Mother Malignant neoplastic disease Pancre atic cancer [email or web address] Not available 10/21/2017 15:14:22 Paternal Grandmother Malignant neoplastic disease Breast [email or web address] Not available 2017 15:14:34 Medical History Condition Response Coronary Artery Disease N Gout N Kidney Stones N Blood Diseases N Depression N COPD N Developmental or Behavioral Disorders N Pacemaker/Defibrillator N Congestive Heart Failure N Eczema, Hives or other skin conditions N Anxiety Disorder N Muscle, Joint, or Bone Problems Y Vision or Eye Problems Y Arthritis N Pulmonary Embolism/DVT N Serious Illness or Injuries Y Congenital Anomalies N Cancer N Stroke N Bladder or Kidney Problems Y Hospital Admission other than Y High Cholesterol N Liver Disease N Fibromyalgia N Kidney Disease N Prostate N Heart Problems N Ear or Hearing Problems Y ADD or ADHD N Thyroid Problems Y Skin Problems N Anemia N Constipation Y Diabetes N Seizures/Epilepsy N Tuberculosis N Diverticulitis N Asthma N Allergies N GERD/Reflux N Hypertension N Chicken Pox N Osteoporosis N Gynecological History Statement/Question Response If Post Menopausal, Age at Menopause 45 Age at Menarche 10 Date of LMP Obstetrics History GPAL:G 0 P 0 0 0 0 Past Encounters Encounter ID Performer Location Encounter Start Date Encounter Closed Date Diagnosis/Indication Diagnosis SNOMED-CT Code Diagnosis ICD10 Code Diagnosis IMO Codes Diagnosis [facility] [id number] [facility] [address] [place] [address] 10/21/2017 14:28:29 10/21/2017 17:11:56 Left lower quadrant pain 157409191 R10.32 Hyperlipidemia 56707916 E78.5 Hypothyroidism 42463054 E03.9 Constipation 97102749 K5 9.00 Discussed adding fiber to diet and discussing with Dr. Grant about getting rectocele repair. [id number] [facility] [address] [facility] [address] [place] [address] 10/23/2017 15:12:14 10/23/2017 17:43:23 Pain in pelvis 04013239 R10.2 Rectocele with enterocele 121436665 N81.5 Recommende d pt to f/u with Dr. Grant (pt's [employer]) about getting repaired Cystocele 726556485 N81. 10 [id number] [facility] [address] [place] [address] 10/31/2017 11:02:47 11/03/2017 14:31:33 Constipation 87870090 K59.00 Discussed adding fiber to diet and discussing with Dr. Grant about getting rectocele repair. Endometrium thickened 44 3143881 R93.8 Pt states she will call and sched appt with Dr. Grant. Had PAP done recently Pain of le ft shoulder joint 2749145445 7025321 M25.512 Pt has been doing PT with Elise Pierson since September. Pt states she has been doing well with PT. Muscle spa sm of cervical muscle of neck 6892333291 04 M62.838 [id number] [facility] [address] [place] [address] 11/11/2017 14:23:47 11/12/2017 12:43:55 Muscle spasm of cervical muscle of neck 8898696841 04 M62.838 Neck pain 30493568 M54.2 [id number] NAUN VERDIN [facility] [address] [facility] [address] [place] [address] 11/25/2017 09:02:32 11/25/2017 16:34:58 Hyperlipidemia 09563084 E78.5 Left lower quadrant pain 716682355 R10.32 Candidiasis of skin 4988 3006 B37.2 [id number] [facility] [address] [facility] [address] [place] [address] 03/18/2018 14:06:44 03/24/2018 15:50:40 Neck pain 07113516 M54.2 Pt had neck xrays done this year. Will get records from [facility] Muscle spa sm of cervical muscle of neck 4788863634 04 M62.838 M ni re's disease 10934684 H81.[address] Perez - ENT at [place], [place] Tinea pedis 6200544 B35. 3 [id number] [facility] [address] [facility] [address] [place] [address] 04/01/2018 10:54:00 04/01/2018 18:17:39 Lumbago with sciatica 596275648 M54.41 Muscle spa sm of cervical muscle of neck 0971402536 04 M62.838 Hyperlipidemia 03068958 E78.5 [id number] [facility] [address] [facility] [address] [place] [address] 06/26/2018 11:20:30 06/26/2018 12:08:30 Acute bronchitis 35393129 J20.9 Acute sinusitis 69242485 J01.90 [id number] NAUN MARIEJARON [facility] [address] [facility] [address] [place] [address] 09/25/2018 09:48:06 09/28/2018 14:59:04 Fever 048190121 R50.9 Streptococ leyda sore throat 93959180 J02.0 [id number] NAUN VELVET [facility] [address] [facility] [address] [place] [address], [place] [address] 10/13/2018 11:03:16 10/16/2018 11:32:55 Tenderness of breast 71613035 N64.4 Finding of appearance of skin 898879095 L98.7 [id number] [facility] [address] [facility] [address] [place] [address] 10/22/2018 11:35:56 10/23/2018 12:30:42 Pharyngitis 879673476 J02.9 Mastodynia of left breast 9633889380 7672714 N64.4 Has been taking Tylenol/Ib uprofen with no relief. States did have relief from Flexeril. [id number] [facility] [address] [facility] [address] [place] [address] 11/27/2018 10:11:06 11/30/2018 12:49:11 Eyes sensitive to light 012520555 H53.149 Pt had eye exam done at [facility] [place]. Headache 93711165 R51 Headaches are more intense and light sensitivit y. Acute sinusitis 43420206 J01.90 [id number] [facility] [address] [facility] [address] [place] [address] 01/01/2019 11:22:24 01/08/2019 11:24:22 Acute sinusitis 39798207 J01.90 Myalgia/my ositis - multiple 068307601 M79.10 Hypothyroidism 81007377 E03.9 [id number] [facility] [address] [facility] [address] [place] [address] 01/04/2019 11:05:52 01/08/2019 11:46:18 Acute sinusitis 91961354 J01.90 Acute bronchitis 8776679 2 J20.9 Constipation 91612047 K5 9.00 Discussed adding fiber to diet and discussing with Dr. Grant about getting rectocele repair. [id number] [facility] [address] [facility] [address] [place] [address] 04/02/2019 10:10:58 04/07/2019 10:13:34 Viral gastroenteritis 864528404 A08.4 Myalgia/my ositis - multiple 816619267 M79.10 [id number] NAT Doyle [facility] [address] [place] [address] 04/17/2019 11:44:57 04/17/2019 12:49:47 Hemorrhoids 45488086 K64.9 rec otc tucks padsdermop last otc prn proctosol today Lower abdominal pain 545 09271 R10.30 concern for hernia Allergic rhinitis 972462 04 J30.9 [id number] NAUN VERDIN APRN [place] [facility] [address] [place] [facility] [address] 05/31/2019 15:40:51 06/01/2019 10:35:42 Myalgia/myositis - multiple 217813225 M79.10 Muscle tension 164778787 R29.898 [id number] NAT Doyle [facility] [address] [place] [address] 07/06/2019 10:33:40 07/06/2019 11:33:40 Cough 53718032 R05 Acute bronchitis 7215742 2 J20.9 [id number] NAT Doyle [facility] [address] [place] [address] 07/30/2019 14:58:49 07/30/2019 17:41:42 Acute sinusitis 97683843 J01.90 [id number] NAT Doyle [facility] [address] [place] [address] 2019 11:43:05 08/16/2019 14:21:23 Aphthous ulcer of mouth 444160802 K12.0 Cough 23826455 R05 cont sudafed Viral uppe r respiratory tract infection 765534119 J06.9 Insomnia 528905026 G47.0 0 [id number] NAT Doyle [facility] [address] [place] [address] 10/13/2019 08:59:02 10/13/2019 10:34:04 Acute pharyngitis 860040116 J02.9 Cough 96496154 R05 Generalize d acute body pains 098419509 R52 flu neg [id number] Cris Chan APRN [employer] [facility] [address] [place] [facility] [address] 11/02/2019 15:26:02 11/02/2019 17:48:49 Insomnia 108214562 G47.00 pt reports that she stopped trazodone d/t not liking the way it made her feelshe has restarted lunesta and is going to try taking melatonin with it to see if that helps Acute sinusitis 67818139 J01.90 rec cool mist humidifier Headache 21612978 R51 Hypothyroidism 28424229 E03.9 [id number] NAT Doyle [address] [facility] [address] [facility] [place] [address] 11/08/2019 09:05:22 11/08/2019 11:11:53 Acute sinusitis 46449894 J01.90 rec cool mist humidifier Allergic rhinitis 814154 04 J30.9 [id number] NAT Doyle [address] [facility] [address] [facility] [place] [address] 12/01/2019 10:51:13 12/01/2019 11:51:46 Insomnia 183691518 G47.00 pt reports that lunesta is the only thing that actually helps her get to sleep but she reports that it doesn't work all the time. she would like for it to be increased if possible.i ncreasing lunesta to 3 mg/day before bed Thoracic back pain 95372 8004 M54.6 Muscle tension 473344501 R29.898 pt instructed to not take flexeril within 8 hours of taking lunesta. Hyperlipidemia 08651805 E78.5 stablecont current meds Hypothyroidism 48181653 E03.9 stabelcont current meds [id number] NAUN NAT VERDIN [facility] [address] [place] [address] 12/10/2019 09:50:30 12/14/2019 17:06:15 Hypothyroidism 20230457 E03.9 Hyperlipidemia 60806986 E78.5 Pharyngitis 744103570 J0 2.9 Streptococ leyda sore throat 48741758 J02.0 [id number] NAT Doyle [address] [facility] [address] [place] [address] 12/21/2019 10:27:28 12/21/2019 16:14:08 Burn of skin 841027764 T30.0 pt has doxy at home and will start taking itsilvaden e cream today Pain in right arm 641207 004 M79.601 [id number] NAUN MARIE[facility]ARON [facility] [address] [facility] [address] [place] [address] 03/10/2020 10:48:50 03/13/2020 12:30:54 Contact dermatitis caused by urushiol from [facility] 374475144 L25.5 Mastodynia of left breast 6627418930 1242139 N64.[address] Alvarado previously and he did not recommend any surgery. Will get repeat mammogram and see if any changes noted to mammogram/ [place] Breast lump 68504841 N63 .0 N63.23 [id number] [facility] [address] [facility] [address] [place] [address] 03/13/2020 10:41:15 03/22/2020 15:07:38 Contact dermatitis caused by urushiol from [facility] [id number] L25.5 Eruption 889468244 R21 [id number] NAT Doyle [address] [facility] 62[facility] [address] [place] [address] 04/17/2020 12:00:03 04/17/2020 17:35:27 Acute sinusitis 54835404 J01.90 rec cool mist humidifier Exposure t o SARS-CoV-2 432561970 Z20.828 [id number] NAT Doyle [address] [place] [address] [place] [address] 05/10/2020 11:49:14 05/10/2020 14:20:31 Neck pain 53700347 M54.2 [id number] NAT Doyle [address] [place] [address] [address] [place] [address] 05/12/2020 10:38:06 05/12/2020 12:15:04 Fever 820094547 R50.9 Cough 24717758 R05 Acute pharyngitis 442621 003 J02.9 Headache 72057004 R51.9 Generalize d acute body pains 299229475 R52 COVID-19 413185756 U07.1 [id number] NAT Doyle CitlalyChapo [facility] [address] [place] [address] 05/23/2020 15:47:05 05/24/2020 10:19:54 COVID-19 154994494 U07.1 Fatigue 85802958 R53.83 Dyspnea 715522087 R06.00 Nausea 680760831 R11.0 [id number] NAT Doyle Citlaly6 [facility] [address] [place] [address] 08/21/2020 09:57:59 08/22/2020 14:04:21 Insomnia 399138036 G47.00 PDMP was reviewed for patient and no inappropri ate scheduled drug use was identified pt reports that lunesta does help some but does not always helppt does not want to switch medication s at this time Allergic rhinitis 467156 04 J30.9 Hyperlipidemia 07346577 E78.5 stablecont current meds Hypothyroidism 97835734 E03.9 stablecont current meds Neck pain 88620209 M54.2 Adult heal th examination 951840264 Z00.00 Body mass index 30+ - obesity 202232033 Z68.30 Screening for malignant neoplasm of colon 970390703 Z12.11 [id number] NAT Doyle [address] [facility] [address] [place] [address] 09/05/2020 16:22:47 09/06/2020 12:20:07 Dysuria 07657635 R30.9 Blood in urine 28051107 R31.9 Acute urin suzanna tract infection 557301549 N39.0 Vaginal dryness 41812072 N89.8 [id number] NAT Doyle Citlayl6 [facility] [address] [address] [place] [address] 11/01/2020 10:52:53 11/01/2020 12:26:43 Spasm of urinary bladder 106658469 N32.89 Dysuria 79597525 R30.9 trace leukocytes noted. [id number] NAT Doyle [address] [facility] [address] [place] [address] 11/28/2020 09:10:04 11/29/2020 14:02:01 Hyperlipidemia 53262155 E78.5 stable cont current meds Insomnia 631613730 G47.0 0 PDMP was reviewed for patient and no inappropri ate scheduled drug use was identified stable cont lunesta Vaginal dryness 00249652 N89.8 stable cont current meds Hypothyroidism 49766686 E03.9 stable cont current meds Neck pain 03763467 M54.2 Allergic rhinitis 798269 04 J30.9 Screening for malignant neoplasm of cervix 987223210 Z12.4 [id number] NAUN VERDIN APRN [facility] [address] [place] [address] 12/22/2020 10:53:55 12/22/2020 14:06:40 Viral gastroenteritis 158226823 A08.4 Nausea 514349640 R11.0 Excessive flatus 2290965 7 R14.3 OTC Gas X [id number] NAT Doyle [address] [place] [address] 01/15/2021 10:25:39 01/16/2021 12:36:06 Fever 967054285 R50.9 Fatigue 31843244 R53.83 Generalize d acute body pains 846938392 R52 Headache 77529913 R51.9 Viral uppe r respiratory tract infection 556080918 J06.9 Pain in throat 126937514 R07.0 Serous otitis media 8032 7007 H65.03 [id number] NAT Doyle [address] [place] [address] 02/15/2021 16:15:17 02/15/2021 17:15:29 Lower abdominal pain 69369524 R10.30 Low back pain 959918008 M54.5 Blood in urine 23203366 R31.9 Spasm of u rinary bladder 019357139 N32.89 starting oxybutynin today [id number] NAT MCKINNEY [address] [facility] [address] [place] [address] 02/26/2021 10:11:01 02/26/2021 11:13:02 Diverticulitis 841418122 K57.92 Pharyngitis 451121989 J0 2.9 Exposure t o SARS-CoV-2 819253558 Z20.828 Candidiasis of vagina 72 472342 B37.3 Candidiasis of mouth 797 98674 B37.0 [id number] NAT MCKINNEY [address] [place] [address]/[facility] [place] [address] 02/28/2021 09:42:23 02/28/2021 16:31:22 Candidiasis of mouth 03886606 B37.0 Headache 03892421 R51.9 Dehydration 76088963 E86 .0 [id number] NAT Doyle [address] [place] [address]/[facility] [place] [address] 03/16/2021 09:36:17 03/16/2021 12:43:24 Diverticulitis of colon 968386349 K57.32 resolvedco nt fiber and probiotics Candidiasis of mouth 797 68244 B37.0 resolved [id number] NAUN VERDIN APRN [facility] [address] [facility]/[address] [place], [place] [address]J[place] [address] 03/27/2021 10:03:26 04/08/2021 17:38:08 Conjunctivitis 1626732 H10.9 [id number] NAT Doyle [address] [facility]/[address] [place] [address] [place] [address] 04/09/2021 15:57:15 04/17/2021 09:26:35 Headache 38781875 R51.9 Acute pharyngitis 740487 003 J02.9 Respirator y tract congestion and cough 141280622 R05 Exposure t o SARS-CoV-2 177405521 Z20.828 [id number] NAT PEARSON [address] [place] [address] [place] [address] 02/08/2022 15:46:17 02/21/2022 12:19:00 Health education given 986650018 Z71.9 Abdominal pain 57295094 R10.9 Given that main location of pain is in LLQ and pt has hx of diverticul itis will treat with cipro and flagyl. UA overall unremarkab le other than trace leuks but cipro would likely also cover UTI if present. Discussed CT scan given ongoing pain, however insurance requires PA. Will treat over the weekend. Will check in with patient on Friday and if no improvemen t will order CT at that time as she is in no acute distress at present. Did advise that if she had any severe pain over the weekend to go to ER for further evaluation . She also has f/u with her PCP on Friday. Dysuria 60757588 R30.9 UA only with trace leuks. Started cipro for coverage of diverticul itis which would also likely cover any UTI. [id number] NAT [facility] [address] [place] [address] 10/16/2022 17:57:14 10/16/2022 18:39:08 Health education given 600457764 Z71.9 Abdominal pain 40260130 R10.9 Reports abd pain and bloating with gas last night, was able to pass gas today and have BM.Reports improvemen t since, but still some tenderness . Abdominal bloating 49868 9008 R14.0 Diverticul osis of colon 111333849 K57.30 Admits she's been eating popcorn and that could be the cause of her discomfort . Health Concerns Section Related Observation LastModified by Organization Detai ls LastModified Time None Recorded Concern Status LastModified by Organization Details LastModified Time None Recorded Advance Directives Directive None Recorded Payers Insurance Date Sequence Insurance Name Policy Number Policy Steel Covered Member ID Steel Member ID Guarantor Name 10/16/2022 1 VESNA-JOHN (PPO) [id number] Leah Moss [id number] eLah Moss Notes Date Note Type Note Provider Name and Address Organization Details Recorded Time 1 text/html patient is here for a 1 month f/u from previous visit. Patient states that she is doing well and feels a lot better. At previous appointment patient had thrush and severe diarrhea. Patient still states that she is nervous to eat certain foods. Cris Chan APRN [address], [place], [address], [place] - Jan Chan [facility] 03/16/2021 10:01:28 1 text/html Eye PainReported by PatientHPIFor quality, patient reportssharpandaching. For location, patient reportsright.Pt c/o right eye pain and redness. eye problem NAUN STUCKER, [place] [address], [place], [address], [place] JOHN Chan [facility] 04/03/2021 00:24:35 1 text/html COVID-19 Symptoms November 2019Reported by PatientUpper Respiratory SymptomsFor covid-19 signs and symptoms, patient reportscough worsening,headache worsening,sore throat worsening, andfatigue worsening. For quality, patient reportsdry cough. For associated symptoms, patient reportsfatigueandbody aches. For severity, patient reportsmild. For duration, patient reportssymptoms lasting 3 days. For prior labs and imaging, patient reportscovid-19 nasopharyngeal swab. For suitability of residential setting, patient reportspatient does have caregiver at home,patient does have gloves and face masks available,patient does not have members of the household at increased risk of complications,patient does have resources to access food and other necessities,patient does have separate bedroom and bathroom for patient, andpatient is able to adhere to hand hygiene and cough etiquette practices. Patient has had headache, sore throat and chest congestion since friday Cris Chan, [address] [place] [address], [place], [address], [place] [facility] 04/09/2021 16:46:27 2 text/html Pt presents to the clinic for abd pain that has been going on off and on for a few weeks now. States last night if became severe enough that she considered going to ER. Is a little better today but seems to be generally getting worse. States at time greasy foods seem to cause symptoms and other times it does not. Does have hx of diverticulitis. Last night and today worse pain is in LLQ but reports abdomen generally just feels tender. She has not been having any fever that she is aware of. Reports no diarrhea. States that she does frequently have to strain to have BM but when she does have one it is soft. Has previously been told she has a rectocele per her report. Has not had any vomiting. No diarrhea. Has had appendix removed. Yesterday reports she also had some burning with urination and some back pain that accompanied her abdominal pain. Reports she has made and appt with her PCP for next Friday. CHERIE DARLENE, [place] [address], [place], [address], [place] JOHN Chan [facility] 02/10/2022 21:45:41 3 text/html Generic HPI TemplateReported by PatientPt presents today with abd pain and bloating since last night. Pt states that she has also been nauseated, no vomiting, no diarrhea. Pt states that she also has diverticulitis and is wondering if she may have ate something to upset that. Siena Medellin, [facility] [place] [address], [place], [address], [place] Chan [facility] 10/16/2022 20:36:19 OBGyn Episode No OBEpisode recorded.
[2025-07-25 07:50] VITALS: BP 137/83; PULSE 59; RESP 18; TEMP 36.8; O2SAT 99; BMI 32.1
--- NOTE | 2025-07-25 07:58 | ECG_ITS ---
[employer] First[employer] Test Date: 2025-07-25 Pat Name: Leah Moss Department: Room: Gender: Female Secretary Office Clerk: : 1970 Requested By: Annalee Brown Order Number: [id number] Chau MD: KOURTNEY LOPEZ Measurements Intervals [place] Rate: 55 P: 50 CO: 184 QRS: 62 QRSD: 82 T: 26 QT: 443 QTc: 425 Interpretive Statements SINUS BRADYCARDIA POSSIBLE ANTERIOR MYOCARDIAL INFARCTION , OF INDETERMINATE AGE [30 ms Q WAVE IN V3/V4, OR R < 0.2 mV IN V4] No previous ECG available for comparison Electronically Signed On 07-28-2025 18:53:19 REAL ESTATE APPRAISER SUPERVISOR by KOURTNEY LOPEZ [email or web address]
--- NOTE | 2025-07-25 08:11 | CT_ITS ---
WS: [id number] CT HEAD TECHNIQUE: Noncontrast CT of the head obtained from the skullbase to the vertex. CLINICAL INFORMATION: george COMPARISON: None. DLP: 1628.[address] scans at [facility] use at least one of these dose optimization techniques: automated exposure control; mA and/or kV adjustment per patient size (includes targeted exams where dose is matched to clinical indication); or iterative reconstruction. FINDINGS: No evidence of intracranial hemorrhage or mass effect. Ventricular system and basal cisterns are patent. No extra-axial fluid collections. No evidence of mass or mass effect. Normal maldonado-white differentiation. Incidental slightly low-lying cerebellar tonsils. Benign basal ganglia calcifications. Paranasal sinuses and mastoid air cells are well aerated. .Normal visualized soft tissues. CT/CT head wo con* [id number] IMPRESSION: 1. No evidence of intracranial hemorrhage or mass effect. 2. No acute intracranial findings.
--- NOTE | 2025-07-25 08:11 | CT_ITS ---
WS: [id number] CTA HEAD AND NECK TECHNIQUE: Contrast enhanced CTA of the head and neck with coronal and sagittal reformatted images and maximum intensity projection (MIP) images. NASCET criteria utilized. CLINICAL INFORMATION: george COMPARISON: None. DLP: 1628.[address] scans at [facility] use at least one of these dose optimization techniques: automated exposure control; mA and/or kV adjustment per patient size (includes targeted exams where dose is matched to clinical indication); or iterative reconstruction. FINDINGS: RIGHT: RIGHT common carotid artery is patent. No significant RIGHT ICA stenosis. ICA is patent to the skull base. LEFT: LEFT common carotid artery is patent. No significant LEFT ICA stenosis. LEFT ICA is patent to the skull base. LEFT dominant vertebral artery. Smaller but patent RIGHT vertebral artery ends in PICA. Basilar artery is patent. Normal vascularity to the FACILITIES DIRECTOR territory bilaterally. Normal vascularity to the EFFIE territory. Patent anterior communicating artery. Normal vascularity to the MCA territory bilaterally. Proximal subclavian arteries are patent. CT[facility] [id number] IMPRESSION: Normal head and neck CTA
--- NOTE | 2025-07-25 08:13 | ED_ITS ---
HPI - Headache 2 General: Chief Complaint: Headache Stated Complaint: neck pain, STOVER, diarrhea Time Seen by Provider: 07/25/25 08:06 Source: patient Mode of arrival: ambulatory Limitations: no limitations History of Present Illness: 54-year-old female states that she belie ves she got food poisoning on Friday states she has been having intermittent diarrhea since then. States starting yesterday started having a headache on the left side of her head. States its been a sharp pain pain in her neck it did improve overnight and then she had the pain worsening today rates the pain a 9 out of 10 she denies any slurred speech denies any neurologic deficits. She denies any worse improved factors denies any abdominal pain Related Data Previous Rx's ?Medication ?Instructions ?Recorded atorvastatin 20 mg tablet 20 mg PO DAILY 90 days #90 t abs 11/02/24 cyclobenzaprine 10 mg tablet 10 mg PO TID PRN muscle s pasm #90 11/02/24 tabs albuterol sulfate 90 mcg/actuation 2 puff inhalation Q ID PRN 12/23/24 aerosol inhaler (Ventolin HFA) shortness of breath or wheezing #6.7 grams levothyroxine 75 mcg tablet 75 mcg PO DAILY 90 days #9 0 tabs 03/09/25 meloxicam 15 mg tablet 15 mg PO DAILY 90 days #90 t abs 03/09/25 Held on 07/15/25. Instructions: while on diclofenac estradiol 0.01% (0.1 mg/gram) See Rx Instructions .Rou te 05/12/25 vaginal cream .COMPLEX #43 grams diclofenac sodium 75 mg 75 mg PO BID 14 days #28 tab s 07/15/25 tablet,delayed release Allergies Allergy/AdvReac Type Severity Reaction Status Date / Time meperidine (From Demerol) Allergy ALGY-Anaphy Verified 07/15/25 10:31 laxis Penicillins Allergy ALGY-Rash Verified 07/15/25 10:31 Review of Systems 2 GI: Reports: diarrhea Neuro: Reports: headache(s) PFS ED 2 PFSH: Medical History (Updated 07/25/25 @ 10:56 by Annalee Brown MD) Sinusitis Conjunctivitis Cervical cancer screening Abdominal pain Encounter to discuss test results UTI (urinary tract infection) Bladder spasms Pneumonia Allergic rhinitis Exposure to COVID-19 virus Encounter for screening for COVID-19 Encounter for screening Dysuria Breast cancer screening Dental abscess Chest pain Costal chondritis Sore throat Bronchitis Hyperlipidemia Hyperthyroidism SOB (shortness of breath) Cough URI (upper respiratory infection) Family History Family/Other Diabetes Hypertension Stroke Social History Smoking and tobacco/nicotine status: never used tobacco/nicotine Second hand smoke exposure: No Alcohol intake: never Substance/Drug Use: never Caregiver/support person: Yes Lives independently: Yes Household members: spouse Marital status: service: No Current occupational status: employed Current gender identity: Female Special tata needs: No Physical Exam 2 Const: COMMON NORMALS: no acute distress, patient oriented x3 and healthy appearing HENMT: COMMON NORMALS: normocephalic and atraumatic HEAD & SCALP: n ormocephalic and atraumatic Eye: COMMON NORMALS: Equal, round and reactive pupils present and EOMs intact bilaterally PUPIL: Yes Equal, round and reactive pupils present Neck/C-Spine: COMMON NORMALS: full ROM and supple OTHER: Tenderness noted to left posterior head along with left trapezius Chest: COMMONS NORMALS: normal inspection of the chest and normal palpation of entire chest wall Resp: COMMON NORMALS: normal respiratory effort, No retractions, No use of accessory muscles and clear to auscultation bilaterally AUSCULTATION: clear to auscultation bilaterally Cardio: COMMON NORMALS: regular rate, regular rhythm and No murmurs present (Cardio) RATE: regular rate RHYTHM: regular rhythm GI: COMMON NORMALS: Normal to inspection, nondistended, normoactive bowel sounds present, Soft to palpation, non-tender and no masses PALPATION: Yes Soft to palpation Extremity: COMMON NORMALS: normal to inspection and full ROM Neuro: COMMON NORMALS: patient oriented x3, moves all extremities and no focal motor deficits Psych: COMMON NORMALS: mental status grossly normal, Normal thought process present and cooperative THOUGHT PROCESS: Normal thought process present Skin: COMMON NORMALS: no rashes or lesions noted and no wounds GENERAL SKIN EXAM: no rashes or lesions noted Course 2 Vital Signs: Vital signs: Vital Signs Temperature 98.2 F 07/25/25 07:50 Pulse Rate 50 L 07/25/25 11:04 Respiratory Rate 18 07/25/25 07:50 Blood Pressure 126/7 07/25/25 11:04 Pulse Oximetry 98 07/25/25 11:04 Oxygen Delivery Me thod Room Air 07/25/25 07:50 MDM - Headache Medical Decision Making Patient presents here with headache along with diarrhea. Differential includes migraine, tension headache, intracerebral hemorrhage, viral syndrome, infectious diarrhea. Patient's blood work here showed no significant abnormalities. Head CT CTA reviewed by me did not show any significant findings no signs of bleed or aneurysm. She has no signs of meningitis here is likely a tension headache diarrhea is likely viral in origin she does feel much improved after Reglan and Benadryl she is stable for discharge she is to take Imodium [id number] return if worsening she understands agrees to plan EKG interpreted by me at 0758 sinus bradycardia heart rate [address] elevation QRS 82 QTc 432 Second EKG interpreted by me at 0915 sinus bradycardia heart rate [address] elevation QRS 90 QTc 486 Medical Records I reviewed the patient's medical records. Lab Data I reviewed the patient's lab results. 07/25/25 08:20 07/25/25 08:[address] 07/25/25 08:11 IMPRESSION: 1. No evidence of intracranial hemorrhage or mass effect. 2. No acute intracranial findings. Head/Neck CTA 07/25/25 08:11 IMPRESSION: Normal head and neck CTA Laboratory Results WBC 6.57 10^3/uL (3.29-11.43) 07/25/25 08:20 RBC 4.40 10^6/uL (3.85-5.65) 07/25/25 08:20 Hgb 13.00 g/dL (11.27-16.99) 07/25/25 08:20 Hct 40.5 % (36-47) 07/25/25 08:20 MCV 92.0 fl (85-98) 07/25/25 08:20 MCH 29.5 pg (27-33) 07/25/25 08:20 MCHC 32.1 g/dL (30-55) 07/25/25 08:20 RDW 13.5 % (12.1-15.1) 07/25/25 08:20 Plt Count 278 10^3/cmm (157-399) 07/25/25 08:20 MPV 8.7 fL (7.4-10.4) 07/25/25 08:20 Neut % (Auto) 57.2 % 07/25/25 08:20 Lymph % (Auto) 33.3 % 07/25/25 08:20 Sauk % (Auto) 8.2 % 07/25/25 08:20 Eos % (Auto) 0.8 % 07/25/25 08:20 Baso % (Auto) 0.3 % 07/25/25 08:20 Neut # (Auto) 3.76 10^3/uL (1.8-7.7) 07/25/25 08:20 Lymph # (Auto) 2.2 10^3/uL (0.8-4.8) 07/25/25 08:20 Sauk # (Auto) 0.5 10^3/uL (0.2-0.9) 07/25/25 08:20 Eos # (Auto) 0.1 10^3/uL (0.0-0.8) 07/25/25 08:20 Baso # (Auto) 0.0 10^3/uL (0.0-0.1) 07/25/25 08:20 Nucleated RBC % (auto) 0 % 07/25/25 08:20 Nucleated RBCs # 0.0 /100WBC 07/25/25 08:20 Sodium 141 mmol/L (136-145) 07/25/25 08:20 Potassium 3.9 mmol/L (3.5-5.1) 07/25/25 08:20 Chloride 104 mmol/L (98-107) 07/25/25 08:20 Carbon Dioxide 27 mmol/L (22-29) 07/25/25 08:20 Anion Gap 13.9 (5-19) 07/25/25 08:20 BUN 10 mg/dL (6-20) 07/25/25 08:20 Creatinine 0.7 mg/dL (0.5-0.9) 07/25/25 08:20 GFR Calculation 86.9 mL/min (90-130) L 07/25/25 08:20 Glucose 110 mg/dL (65-115) 07/25/25 08:20 Calculated Osmolality 292 mOsm/kg (285-295) 07/25/25 08:20 Calcium 9.7 mg/dL (8.5-10.5) 07/25/25 08:20 Total Bilirubin 0.4 mg/dL (0.15-1.2) 07/25/25 08:20 AST 35 U/L (0-32) H 07/25/25 08:20 ALT 37 U/L (0-33) H 07/25/25 08:20 Alkaline Phosphatase 75 U/L (35-105) 07/25/25 08:20 Total Protein 7.1 g/dL (6.6-8.7) 07/25/25 08:20 Albumin 4.7 g/dL (3.5-5.2) 07/25/25 08:20 Globulin 2.4 g/dL (1.3-4.6) 07/25/25 08:20 All radiology interpretation(s) finalized by discharge Discharge Plan Discharge Patient Disposition: Home Clinical Impression: Headache Qualifiers: Headache type: unspecified Intractability: not intractable Diarrhea Qualifiers: Diarrhea type: unspecified type Qualified Code(s): R19.7 - Diarrhea, unspecified Condition: Stable Prescriptions: No Action albuterol sulfate [Ventolin HFA] 90 mcg/actuation HFA aerosol inhaler 2 puff inhalation QID PRN (Reason: shortness of breath or wheezing) Qty: 6.7 0RF diclofenac sodium 75 mg tablet,delayed release (DR/EC) 75 mg PO BID 14 Days Qty: 28 0RF atorvastatin 20 mg tablet 20 mg PO DAILY 90 Days Qty: 90 1RF cyclobenzaprine 10 mg tablet 10 mg PO TID PRN (Reason: muscle spasm) Qty: 90 3RF levothyroxine 75 mcg tablet 75 mcg PO DAILY 90 Days Qty: 90 1RF meloxicam 15 mg tablet 15 mg PO DAILY 90 Days Qty: 90 1RF estradiol 0.01 % (0.1 mg/gram) cream See Rx Instructions .ROUTE .COMPLEX Qty: 43 0RF Dose Instruction: INSERT ONE APPLICATORFUL VAGINALLY ONCE DAILY FOR 14 DAYS Rx Instructions: INSERT ONE APPLICATORFUL VAGINALLY ONCE DAILY FOR 14 DAYS Discharge Orders: Discharge ED (Routine); Ordered 07/25/25 Ordered By: Annalee Brown Referrals: Adelaide Pearce FNP-C [Primary Care Provider, Family Practice] - 4-7 days Discharge Diet: Advance as tolerated Discharge Activity: Resume usual activity Patient Instructions: Headache, Acute Diarrhea (ED) Print Language: Bengali Coding Level of Care Code ED Vendor Relationship Manager for Apolinar Chang
[2025-07-25 08:25] LABS: Hematocrit 40.5 % (36-47); Hemoglobin 13.00 g/dL (11.27-16.99); Mean Corpuscular HGB Conc 32.1 g/dL (30-55); Mean Corpuscular Hemoglobin 29.5 pg (27-33); Mean Corpuscular Volume 92.0 fl (85-98); Nucleated Red Blood Cells % 0 %; Platelet Count 278 10^3/cmm (157-399); Red Blood Count 4.40 10^6/uL (3.85-5.65); White Blood Count 6.57 10^3/uL (3.29-11.43)
[2025-07-25 08:35] VITALS: PULSE 57; O2SAT 100
[2025-07-25] MEDS: metoclopramide 5 mg/mL SDV 2 mL 10 MG IVP (08:35)
[2025-07-25] MEDS: diphenhydrAMINE 50 mg/mL SDV 1mL IVP (08:35)
[2025-07-25 08:46] LABS: Alanine Aminotransferase 37 U/L (0-33); Albumin Level 4.7 g/dL (3.5-5.2); Alkaline Phosphatase 75 U/L (35-105); Anion Gap 13.9 (5-19); Aspartate Amino Transferase 35 U/L (0-32); Blood Urea Nitrogen 10 mg/dL (6-20); Calcium 9.7 mg/dL (8.5-10.5); Carbon Dioxide 27 mmol/L (22-29); Chloride 104 mmol/L (98-107); Globulin 2.4 g/dL (1.3-4.6); Glucose 110 mg/dL (65-115); Osmolality Calculated 292 mOsm/kg (285-295); Potassium 3.9 mmol/L (3.5-5.1); Sodium 141 mmol/L (136-145); Total Protein 7.1 g/dL (6.6-8.7)
--- NOTE | 2025-07-25 09:15 | ECG_ITS ---
[facility] Test Date: 2025-07-25 Pat Name: Leah Moss Department: Room: Gender: Female Hemodialysis Technician: : 1970 Requested By: Annalee Brown Order Number: [id number] Chau MD: Reynold Arce M.D. Measurements Intervals [place] Rate: 40 P: 22 WA: 184 QRS: 73 QRSD: 90 T: 36 QT: 552 QTc: 455 Interpretive Statements SINUS BRADYCARDIA POSSIBLE ANTERIOR MYOCARDIAL INFARCTION , OF INDETERMINATE AGE [30 ms Q WAVE IN V3/V4, OR R < 0.2 mV IN V4] NO SIGNIFICANT CHANGE Electronically Signed On 07-28-2025 16:32:00 RESEARCH QUALITY ASSURANCE ANALYST by Reynold Arce M.D. [email or web address]
[2025-07-25] MEDS: iohexol 350 mg/mL 500 mL Btl (per mL) IV (09:58)
[2025-07-25 11:04] VITALS: BP 126/7; PULSE 50; O2SAT 98
== END 2025-07-25 11:14 | disposition home or self-care (01) ==
PROVIDERS: Emergency Provider Emergency Medicine; PCP Nurse Practitioner Family
DX: R51.9 Headache, unspecified (principal); R19.7 Diarrhea, unspecified; E78.5 Hyperlipidemia, unspecified
CPT/HCPCS: 70450; 70496; 70498; 80053; 85025; 93005; 96374; 96375; 99285; J1200; J1885; J2765; J7030